=== PATIENT | male | born 1995 | race Caucasian/White ===

== ENCOUNTER 2017-01-21 14:59 | Emergency (ER) | payer BC ==
[2017-01-21 15:04] VITALS: BP 130/73; PULSE 88; RESP 16; TEMP 98.2; O2SAT 98
--- NOTE | 2017-01-21 15:58 | EDPHY ---
H & P Stated Complaint: headache, body aches x 3 days fatigue Time Seen by Provider: 01/21/17 15:17 HPI/ROS: CHIEF COMPLAINT: Headache, nausea, subjective fever HISTORY OF PRESENT ILLNESS: The patient presents to the ED with mild headache, nausea, myalgias and a subjective fever for past 3 days. The patient denies additional complaints. He has no complaints of cough or sore throat. The patient denies abdominal pain, nausea vomiting or diarrhea. The patient denies significant past medical history. The patient denies additional complaints. REVIEW OF SYSTEMS: A comprehensive 10 point review of systems is otherwise negative aside from elements mentioned in the history of present illness. Source: Patient Exam Limitations: No limitations - Personal History Current Tetanus/Diphtheria Vaccine: Unsure Current Tetanus Diphtheria and Acellular Pertussis (TDAP): Unsure - Medical/Surgical History Hx Asthma: No Hx Chronic Respiratory Disease: No Hx Diabetes: No Hx Cardiac Disease: No Hx Renal Disease: No Hx Cirrhosis: No Hx Alcoholism: No Hx HIV/AIDS: No Hx Splenectomy or Spleen Trauma: No Other PMH: denies - Social History Smoking Status: Never smoked - Physical Exam Exam: General Appearance: Alert, no distress Eyes: Pupils equal and round no pallor or injection ENT, Mouth: Mucous membranes moist Respiratory: There are no retractions, lungs are clear to auscultation Cardiovascular: Regular rate and rhythm Gastrointestinal: Abdomen is soft and nontender, no masses, bowel sounds normal Neurological: A&O, normal motor function, normal sensory exam, normal cranial nerves Skin: Warm and dry, no rashes Musculoskeletal: Neck is supple nontender, no meningeal symptoms Extremities: symmetrical, full range of motion Constitutional: Initial Vital Signs Temperature (C) 36.8 C 01/21/17 15:02 Heart Rate 88 01/21/17 15:02 Respiratory Rate 16 01/21/17 15:02 Blood Pressure 130/73 H 01/21/17 15:02 O2 Sat (%) 98 01/21/17 15:02 O2 Delivery Mode Room Air Allergies/Adverse Reactions: No Known Allergies Allergy (Unverified 02/06/16 11:15) Home Medications: Medication Instructions Recorded Ibuprofen 600 mg PO TID #30 tablet 01/21/17 Ondansetron Odt [Zofran Odt] 4 mg PO Q4PRN PRN #20 tab 01/21/17 Medical Decision Making ED Course/Re-evaluation: The patient presents the emergency department with a viral illness for the past 3 days. His rapid flu test is negative. He has no clinical evidence of pneumonia or meningitis. The patient will be treated with anti-inflammatories and given antinausea medication. The patient is advised to rest and drink plenty of fluids. He is given customary return precautions and aftercare instructions. Differential Diagnosis: Differential diagnosis considered includes influenza, otitis media, pharyngitis - Data Points Laboratory Results: 01/21/17 15:15 Influenza Typ A,B (DFA) NEGATIVE FOR FLU (NEGATIVE) Departure - Departure Disposition: Home, Routine, Self-Care Clinical Impression: Viral syndrome Condition: Good Instructions: Viral Syndrome (ED) Additional Instructions: 1. Take Ibuprofen or Motrin 600 mg by mouth three times a day. 2. Zofran as needed for nausea 3. Please return to the ED for markedly worsening symptoms.
== END 2017-01-21 16:00 | disposition home or self-care (01) ==
DX: B34.9 Viral infection, unspecified (principal)

== ENCOUNTER 2017-01-26 18:40 | Emergency (ER) | payer BC ==
[2017-01-26 18:46] VITALS: O2SAT 96
--- NOTE | 2017-01-26 20:27 | EDPHY ---
H & P Stated Complaint: sore throat;flu like sxs;h/a x 1 wk from "studying really hard " Time Seen by Provider: 01/26/17 20:25 HPI/ROS: CHIEF COMPLAINT: Headache, Ear ache HISTORY OF PRESENT ILLNESS: The patient is a 21 year old male presenting with headache for the past few days. The patient was here 01/21 with body aches and lethargy. He had a negative influenza test at that time. The patient states his body aches have worsened and he continues to have a sore throat. He has had a headache for the past few days that has progressively worsened. Today he popped his left ear and felt like he lost his sense of balance. He now has pain in the left ear. The patient has been taking Ibuprofen and Aleve, but has not found any relief. He denies fever, nausea, vomiting, or diarrhea. REVIEW OF SYSTEMS: Aside from elements discussed in the HPI, a comprehensive 10-point review of systems was reviewed and is negative. PAST MEDICAL HISTORY: Denies. Does take Adderall when he needs study. SOCIAL HISTORY: Nonsmoker. No drug use. Social alcohol use. VITAL SIGNS: Reviewed by me GENERAL: Well-developed, well-nourished, resting comfortably in no respiratory distress. HEENT: Atraumatic. Eyes: RODY. No icterus, no injection. Ear: Left TM with erythema and vesicles. Right TM clear. Mouth: moist mucous membranes. Oropharynx has slight erythema, no exudates. Tonsils slightly red. Neck: supple with no adenopathy. Negative Kernig's, negative Brudzinski's. Supple. LUNGS: Clear to auscultation. CARDIAC: Regular rate and rhythm, no rubs, murmurs or gallops. ABDOMEN: Soft, nontender, nondistended, bowel sounds normal. BACK: No CVA tenderness. EXTREMITIES: No trauma. No edema. Range of motion is normal throughout. NEURO: Alert and oriented, grossly nonfocal. SKIN: Warm and dry, no rash. PSYCHIATRIC: Normal mentation, no agitation. Portions of this note were transcribed by a medical imaging technologist. I personally performed a history, physical exam, medical decision making, and confirmed accuracy of information the transcribed note. Source: Patient - Personal History Current Tetanus Diphtheria and Acellular Pertussis (TDAP): Yes - Medical/Surgical History Hx Asthma: No Hx Chronic Respiratory Disease: No Hx Diabetes: No Hx Cardiac Disease: No Hx Renal Disease: No Hx Cirrhosis: No Hx Alcoholism: No Hx HIV/AIDS: No Hx Splenectomy or Spleen Trauma: No Other PMH: denies - Social History Smoking Status: Never smoked Constitutional: Initial Vital Signs Temperature (C) 36.8 C 01/26/17 18:42 Heart Rate 92 01/26/17 18:42 Respiratory Rate 16 01/26/17 18:42 Blood Pressure 135/95 H 01/26/17 18:42 O2 Sat (%) 96 01/26/17 18:42 O2 Delivery Mode Room Air Allergies/Adverse Reactions: No Known Allergies Allergy (Verified 01/26/17 18:41) Home Medications: Medication Instructions Recorded Ibuprofen 600 mg PO TID #30 tablet 01/21/17 Ondansetron Odt [Zofran Odt] 4 mg PO Q4PRN PRN #20 tab 01/21/17 Amoxicillin/Clavulanate Pot 875 mg PO BID #14 tab 01/26/17 [Augmentin 875 MG TAB (*)] Medical Decision Making ED Course/Re-evaluation: The patient received 1000mg Tylenol PO. I discussed discharge plans with the patient. I recommended decongestants and Flonase in addition to Augmentin. Differential Diagnosis: Differential diagnosis of the patient's symptom complex was considered including but not limited to viral upper respiratory infection, viral pharyngitis, strep pharyngitis, otitis media, sinusitis, meningitis, encephalitis. - Data Points Medications Given: Discontinued Medications Acetaminophen (Tylenol) 1,000 mg PO EDNOW ONE Stop: 01/26/17 20:39 Last Admin: 01/26/17 20:43 Dose: 1,000 mg Amoxicillin/Clavulanate Potassium (Augmentin 875mg) 875 mg PO EDNOW ONE PRN Reason: Protocol Stop: 01/26/17 20:53 Last Admin: 01/26/17 20:55 Dose: 875 mg Departure - Departure Disposition: Home, Routine, Self-Care Clinical Impression: Otitis media Qualifiers: Otitis media type: unspecified Laterality: left Chronicity: unspecified Qualified Code(s): H66.92 - Otitis media, unspecified, left ear Condition: Good Instructions: Otitis Media (ED) Additional Instructions: Take the full course of Augmentin for your ear infection. Mainstay of therapy will be to drink plenty of fluids, control your symptoms with [id number] medications, and get plenty of rest. If you have a fever, use Tylenol or ibuprofen. You may take both at the same time if needed. Adult Pain & Fever Control: We recommend Acetaminophen (Tylenol) and Ibuprofen (Motrin, Advil) for pain and fever control. When fever is high or pain severe, both drugs can be used at the same time, but at different intervals. Please note the time differences. Your dose is: Acetaminophen 650-1000mg every 4 to 6 hours Ibuprofen 600mg every 8 hours with food. If you have a runny nose, take an antihistamine. If you are congested, take a decongestant. If you have a sore throat, take Tylenol, or ibuprofen. Throat lozenges, throat sprays, or salt water gargles may also be helpful. Return to the emergency department or seek care urgently if your symptoms are worsening despite the above treatment, if you develop shortness of breath, if you're unable to drink fluids secondary to throat pain or other issues, to have vomiting, diarrhea, or other concerns. Referrals: [facility] GAO ,. [Clinic] - As per Instructions Stand Alone Forms: School Excuse Prescriptions: Amoxicillin/Clavulanate Pot [Augmentin 875 MG TAB (*)] 875 mg PO BID #14 tab Report Scribed for: Chelsey Hinson Report Scribed by: Genny Johnson Date of Report: 01/26/17 Time of Report: 20:34
[2017-01-26] MEDS ORDERED: ACETAMINOPHEN 500 MG TAB PO ONE (20:38)
[2017-01-26] MEDS ORDERED: ACETAMINOPHEN 500 MG TAB ONE (20:42)
[2017-01-26] MEDS ORDERED: AMOXICILLIN/CLAVULANATE POT 875/125 MG TAB PO ONE ×2 (20:48→20:52)
[2017-01-26 21:12] VITALS: BP 133/85; PULSE 81; RESP 20; TEMP 98.6
== END 2017-01-26 21:12 | disposition home or self-care (01) ==
DX: H66.92 Otitis media, unspecified, left ear (principal)